=== PATIENT | male | born 1975 | race Caucasian/White ===

== ENCOUNTER 2019-02-28 10:21 | Inpatient (IN) ==
[2019-02-28] MEDS ORDERED: HYDROmorphone 2 MG/1 ML VIAL IV STA (10:42)
[2019-02-28] MEDS ORDERED: ONDANSETRON 4 MG/2 ML VIAL IV STA (10:42)
[2019-02-28] MEDS ORDERED: SODIUM CHLORIDE 0.9% 1,000 ML IV STA ×2 (10:42→12:44)
[2019-02-28] MEDS ORDERED: PIPERACILLIN/TAZOBACTAM 3,375 MG in SODIUM CHLORIDE 0.9% 100 ML IV STA (11:09)
[2019-02-28 11:30] LABS: Basophils # 0.1 10*3/uL (0.0-0.2); Basophils % 0.5 % (0.0-0.8); Eosinophils # 0.1 10*3/uL (0.0-0.87); Eosinophils % 0.4 % (0.00-10.9); Hematocrit 44.1 VOL% (42.0-52.0); Hemoglobin 15.3 GM/DL (14.0-18.0); Immature Granulocytes % 1.1 %; Immature Granulocytes Absolute 0.27 #; Lymphocytes # 1.4 10*3/uL (1.4-4.0); Lymphocytes % 5.7 % (21.2-54.2); Mean Corpuscular HGB Conc 34.7 GM/DL (32-36); Mean Corpuscular Volume 96.9 FL (87-102); Mean Platelet Volume 11.6 FL (9.6-12.0); Monocytes % 5.3 % (1.7-12.7); NRBC # 0.02 10*3/uL; Platelet Count 206 T/CUMM (130-400); Red Blood Count 4.55 MC/CUMM (3.8-5.5); Red Cell Distribution Width 12.8 % (9.3-17.3); White Blood Count 24.9 T/CUMM (4-12)
[2019-02-28 12:23] LABS: Band Neutrophils 1 % (0-10); Eosinophils 2 % (0-10); Lymphocytes 7 % (20-55); Segmented Neutrophils 84 % (50-85); Total Cells Counted 100
[2019-02-28 12:24] LABS: Platelet Estimate Normal
[2019-02-28 12:28] LABS: Alanine Aminotransferase 89 U/L (16-61); Albumin 3.3 G/DL (3.4-5.0); Alkaline Phosphatase 103 U/L (45-117); Aspartate Amino Transferase 62 U/L (0-37); Blood Urea Nitrogen 7 MG/DL (7-18); Calcium 6.5 MG/DL (8.5-10.1); Glucose 295 MG/DL (74-106); Osmolality,Calculated 263.2 MOS/KG (273-304)
[2019-02-28 13:17] LABS: Apearance,Urine CLEAR (Clear); Bilirubin,Urine Negative (Negative); Blood, Urine Small mg/dL (Negative); Glucose,Urine (UA) >=500 mg/dL (Negative); Ketones,Urine 80 mg/dL (Negative); Mucus,Urine Occasional /LPF (Occasional); Nitrite,Urine Negative (Negative); Protein,Urine >=500 MG/DL; RBC,Urine 5 /HPF (0-4); Squamous Epithelial Cell,Urine Occasional /HPF (0-10); Urine Color Yellow (Yellow); Urine Specific Gravity 1.032 (1.001-1.035); Urine Urobilinogen < 2.0 EU/DL (0.2-1.0); WBC,Urine 1 /HPF (0-6)
[2019-02-28] MEDS ORDERED: MAGNESIUM SULF RIDER 2 GM in PREMIX 1 EACH IV PRN (15:22)
[2019-02-28] MEDS ORDERED: MAGNESIUM SULF RIDER 4 GM in PREMIX 1 EACH IV PRN (15:22)
[2019-02-28] MEDS ORDERED: DEXTROSE 50% 25 GM/50 ML VIAL IV PRN (15:22)
[2019-02-28] MEDS ORDERED: GLUCAGON 1 MG VIAL IM PRN (15:22)
[2019-02-28] MEDS: HYDROmorphone 2 MG/1 ML VIAL IV PRN ×3 (15:40→22:40)
[2019-02-28] MEDS ORDERED: hydrALAZINE 20 MG/1 ML VIAL IV PRN (16:19)
[2019-02-28 16:34] LABS: Risk Ratio 10.18
[2019-02-28 16:48] LABS: VLDL CHOLESTEROL 966.6 MG/DL
[2019-02-28] MEDS: DEXTROSE 5% NACL 0.9% 1,000 ML IV SCH (17:36)
[2019-02-28] MEDS: INSULIN REGULAR DRIP 100 ML IV SCH (17:37)
[2019-02-28] MEDS ORDERED: INSULIN LISPRO 100 UNIT/ML SUBCUT SCH ×2 (18:00)
[2019-02-28] MEDS: ONDANSETRON 4 MG/2 ML VIAL IV PRN (18:35)
[2019-02-28] MEDS: PANTOPRAZOLE 40 MG VIAL IV SCH (20:34)
[2019-02-28] MEDS: PIPERACILLIN/TAZOBACTAM 3,375 MG in SODIUM CHLORIDE 0.9% 100 ML IV SCH (20:34)
[2019-02-28] MEDS: ENOXAPARIN 40 MG/0.4 ML SYRINGE SUBCUT SCH (20:34)
[2019-03-01] MEDS: DEXTROSE 5% NACL 0.9% 1,000 ML IV SCH ×3 (01:36→17:46)
[2019-03-01 04:19] LABS: Basophils # 0.1 10*3/uL (0.0-0.2); Basophils % 0.3 % (0.0-0.8); Eosinophils # 0.2 10*3/uL (0.0-0.87); Eosinophils % 0.9 % (0.00-10.9); Hematocrit 39.5 VOL% (42.0-52.0); Hemoglobin 14.3 GM/DL (14.0-18.0); Immature Granulocytes % 1.2 %; Lymphocytes # 1.5 10*3/uL (1.4-4.0); Lymphocytes % 5.9 % (21.2-54.2); Mean Corpuscular HGB Conc 36.2 GM/DL (32-36); Mean Corpuscular Volume 97.5 FL (87-102); Mean Platelet Volume 12.4 FL (9.6-12.0); Monocytes % 4.7 % (1.7-12.7); Platelet Count 273 T/CUMM (130-400); Red Blood Count 4.05 MC/CUMM (3.8-5.5); Red Cell Distribution Width 13.6 % (9.3-17.3); White Blood Count 24.9 T/CUMM (4-12)
[2019-03-01 04:38] LABS: Bilirubin,Total 0.7 MG/DL (0.2-1.0); Calcium 8.3 MG/DL (8.5-10.1); Osmolality,Calculated 271.2 MOS/KG (273-304); Total Protein 7.5 G/DL (6.4-8.3)
[2019-03-01 05:23] LABS: Risk Ratio 11.06; VLDL CHOLESTEROL 503.4 MG/DL
[2019-03-01 05:35] LABS: Platelet Estimate Normal
[2019-03-01] MEDS: PIPERACILLIN/TAZOBACTAM 3,375 MG in SODIUM CHLORIDE 0.9% 100 ML IV SCH ×3 (05:41→20:37)
[2019-03-01] MEDS: HYDROmorphone 2 MG/1 ML VIAL IV PRN ×4 (06:10→21:40)
[2019-03-01] MEDS: PANTOPRAZOLE 40 MG VIAL IV SCH ×2 (08:55→20:37)
[2019-03-01] MEDS: DILTIAZEM 50 MG/10 ML VIAL IV PRN ×2 (12:53→18:36)
[2019-03-01] MEDS: ENOXAPARIN 40 MG/0.4 ML SYRINGE SUBCUT SCH (20:37)
[2019-03-01] MEDS: NICOTINE 21 MG/24 HR PATCH TRANSDERM PRN (21:44)
[2019-03-02] MEDS: DEXTROSE 5% NACL 0.9% 1,000 ML IV SCH ×3 (01:38→19:58)
[2019-03-02] MEDS: HYDROmorphone 2 MG/1 ML VIAL IV PRN ×4 (02:23→20:31)
[2019-03-02 04:44] LABS: Basophils # 0.1 10*3/uL (0.0-0.2); Basophils % 0.4 % (0.0-0.8); Eosinophils # 0.3 10*3/uL (0.0-0.87); Eosinophils % 1.7 % (0.00-10.9); Hematocrit 36.6 VOL% (42.0-52.0); Hemoglobin 12.5 GM/DL (14.0-18.0); Immature Granulocytes % 1.2 %; Immature Granulocytes Absolute 0.23 #; Lymphocytes # 1.1 10*3/uL (1.4-4.0); Lymphocytes % 5.3 % (21.2-54.2); Mean Corpuscular HGB Conc 34.2 GM/DL (32-36); Mean Corpuscular Volume 98.9 FL (87-102); Mean Platelet Volume 11.9 FL (9.6-12.0); Monocytes % 5.2 % (1.7-12.7); Neutrophils % 86.2 % (38.7-73.9); Platelet Count 162 T/CUMM (130-400); Red Cell Distribution Width 13.8 % (9.3-17.3); White Blood Count 19.9 T/CUMM (4-12)
[2019-03-02] MEDS: INSULIN REGULAR DRIP 100 ML IV SCH ×2 (04:48→20:43)
[2019-03-02] MEDS: PIPERACILLIN/TAZOBACTAM 3,375 MG in SODIUM CHLORIDE 0.9% 100 ML IV SCH ×3 (04:49→20:30)
[2019-03-02 05:47] LABS: Albumin 2.3 G/DL (3.4-5.0); Bilirubin,Total 0.7 MG/DL (0.2-1.0); Calcium 8.4 MG/DL (8.5-10.1); Osmolality,Calculated 274.8 MOS/KG (273-304); Risk Ratio 15.15; Total Protein 6.7 G/DL (6.4-8.3); VLDL CHOLESTEROL 270.2 MG/DL
[2019-03-02] MEDS ORDERED: GEMFIBROZIL 600 MG TABLET PO SCH (07:30)
[2019-03-02] MEDS ORDERED: ACETAMINOPHEN 325 MG TABLET PO PRN (07:47)
[2019-03-02] MEDS ORDERED: ALUMINUM/MAGNES/SIMETH MAX STR 30 ML UDCUP PO PRN (07:47)
[2019-03-02] MEDS ORDERED: DEXTROSE 50% 25 GM/50 ML SYRINGE IV PRN (08:00)
[2019-03-02] MEDS: ONDANSETRON 4 MG/2 ML VIAL IV PRN (08:29)
[2019-03-02] MEDS: POTASSIUM CHLORIDE RIDER 10 MEQ in PREMIX 1 EACH IV PRN (08:31)
[2019-03-02] MEDS: BUTALBITAL/ACETAMIN/CAFFEINE 50-325-40 MG TABLET PO PRN ×3 (08:32→22:50)
[2019-03-02] MEDS: DILTIAZEM 30 MG TABLET PO SCH ×4 (08:33→20:30)
[2019-03-02] MEDS: PANTOPRAZOLE 40 MG VIAL IV SCH ×2 (08:34→20:30)
[2019-03-02] MEDS: GEMFIBROZIL 600 MG TABLET PO SCH (17:06)
[2019-03-02] MEDS: ENOXAPARIN 40 MG/0.4 ML SYRINGE SUBCUT SCH (20:30)
[2019-03-03] MEDS: HYDROmorphone 2 MG/1 ML VIAL IV PRN ×5 (00:05→21:53)
[2019-03-03] MEDS: diphenhydrAMINE CAP 25 MG CAPSULE PO PRN ×4 (00:44→20:04)
[2019-03-03 04:49] LABS: Calcium 8.3 MG/DL (8.5-10.1); Osmolality,Calculated 273.8 MOS/KG (273-304)
[2019-03-03] MEDS: PIPERACILLIN/TAZOBACTAM 3,375 MG in SODIUM CHLORIDE 0.9% 100 ML IV SCH ×3 (05:08→20:04)
[2019-03-03] MEDS: DEXTROSE 5% NACL 0.9% 1,000 ML IV SCH ×2 (05:08→16:00)
[2019-03-03] MEDS: POTASSIUM CHLORIDE RIDER 10 MEQ in PREMIX 1 EACH IV PRN ×2 (05:09→06:27)
[2019-03-03 06:47] LABS: Basophils # 0.1 10*3/uL (0.0-0.2); Basophils % 0.3 % (0.0-0.8); Eosinophils # 0.4 10*3/uL (0.0-0.87); Eosinophils % 2.7 % (0.00-10.9); Hematocrit 37.4 VOL% (42.0-52.0); Hemoglobin 12.1 GM/DL (14.0-18.0); Immature Granulocytes Absolute 0.15 #; Lymphocytes # 1.3 10*3/uL (1.4-4.0); Lymphocytes % 9.1 % (21.2-54.2); Mean Corpuscular HGB Conc 32.4 GM/DL (32-36); Mean Corpuscular Volume 100.5 FL (87-102); Mean Platelet Volume 11.6 FL (9.6-12.0); Monocytes % 6.9 % (1.7-12.7); Platelet Count 166 T/CUMM (130-400); Red Blood Count 3.72 MC/CUMM (3.8-5.5); White Blood Count 14.6 T/CUMM (4-12)
[2019-03-03] MEDS: DILTIAZEM 30 MG TABLET PO SCH ×5 (07:18→20:04)
[2019-03-03] MEDS: GEMFIBROZIL 600 MG TABLET PO SCH ×2 (07:18→17:11)
[2019-03-03 07:58] LABS: Risk Ratio 16.35
[2019-03-03] MEDS: PANTOPRAZOLE 40 MG VIAL IV SCH ×2 (09:55→20:04)
[2019-03-03] MEDS: BUTALBITAL/ACETAMIN/CAFFEINE 50-325-40 MG TABLET PO PRN (14:20)
[2019-03-03] MEDS: INSULIN REGULAR DRIP 100 ML IV SCH (18:59)
[2019-03-03] MEDS: ENOXAPARIN 40 MG/0.4 ML SYRINGE SUBCUT SCH (20:04)
[2019-03-04] MEDS: DEXTROSE 5% NACL 0.9% 1,000 ML IV SCH (00:42)
[2019-03-04 04:48] LABS: Basophils % 0.3 % (0.0-0.8); Eosinophils # 0.3 10*3/uL (0.0-0.87); Eosinophils % 2.2 % (0.00-10.9); Hematocrit 34.4 VOL% (42.0-52.0); Hemoglobin 11.5 GM/DL (14.0-18.0); Immature Granulocytes % 0.8 %; Immature Granulocytes Absolute 0.11 #; Lymphocytes # 1.1 10*3/uL (1.4-4.0); Lymphocytes % 7.9 % (21.2-54.2); Mean Corpuscular HGB Conc 33.4 GM/DL (32-36); Mean Corpuscular Volume 98.9 FL (87-102); Mean Platelet Volume 11.3 FL (9.6-12.0); Monocytes % 8.6 % (1.7-12.7); Neutrophils % 80.2 % (38.7-73.9); Platelet Count 179 T/CUMM (130-400); Red Blood Count 3.48 MC/CUMM (3.8-5.5); Red Cell Distribution Width 13.6 % (9.3-17.3); White Blood Count 13.6 T/CUMM (4-12)
[2019-03-04 05:03] LABS: Albumin 2.1 G/DL (3.4-5.0); Bilirubin,Total 0.6 MG/DL (0.2-1.0); Calcium 7.9 MG/DL (8.5-10.1); Osmolality,Calculated 274.7 MOS/KG (273-304); Total Protein 6.5 G/DL (6.4-8.3)
[2019-03-04] MEDS: PIPERACILLIN/TAZOBACTAM 3,375 MG in SODIUM CHLORIDE 0.9% 100 ML IV SCH ×3 (05:15→20:58)
[2019-03-04] MEDS: POTASSIUM CHLORIDE RIDER 10 MEQ in PREMIX 1 EACH IV PRN ×3 (05:15→08:14)
[2019-03-04] MEDS: GEMFIBROZIL 600 MG TABLET PO SCH ×2 (08:00→16:42)
[2019-03-04] MEDS: DILTIAZEM 30 MG TABLET PO SCH ×4 (08:01→20:59)
[2019-03-04] MEDS: PANTOPRAZOLE 40 MG VIAL IV SCH ×2 (08:02→20:57)
[2019-03-04] MEDS ORDERED: BISACODYL 10 MG SUPP RECTAL PRN (09:42)
[2019-03-04] MEDS ORDERED: BISACODYL 5 MG TABLET PO PRN (09:42)
[2019-03-04] MEDS ORDERED: POTASSIUM CHLORIDE 20 MEQ TABLET PO ONE (10:09)
[2019-03-04] MEDS: HYDROmorphone 2 MG/1 ML VIAL IV PRN ×4 (10:51→21:36)
[2019-03-04] MEDS: POLYETHYLENE GLYCOL POWDER 17 GM PACK PO SCH (11:45)
[2019-03-04] MEDS ORDERED: DEXTROSE 50% 25 GM/50 ML VIAL IV PRN (15:16)
[2019-03-04] MEDS: INSULIN LISPRO 100 UNIT/ML SUBCUT SCH ×2 (16:42→21:47)
[2019-03-04] MEDS: NIACIN 500 MG TABLET PO SCH (21:00)
[2019-03-04] MEDS: ENOXAPARIN 40 MG/0.4 ML SYRINGE SUBCUT SCH (21:00)
[2019-03-04] MEDS: NICOTINE 21 MG/24 HR PATCH TRANSDERM PRN (21:35)
[2019-03-04] MEDS: diphenhydrAMINE CAP 25 MG CAPSULE PO PRN (21:39)
[2019-03-05] MEDS: INSULIN LISPRO 100 UNIT/ML SUBCUT SCH ×6 (00:30→20:24)
[2019-03-05] MEDS: HYDROmorphone 2 MG/1 ML VIAL IV PRN ×5 (01:41→19:38)
[2019-03-05 04:21] LABS: Basophils # 0.1 10*3/uL (0.0-0.2); Basophils % 0.6 % (0.0-0.8); Eosinophils # 0.3 10*3/uL (0.0-0.87); Eosinophils % 2.3 % (0.00-10.9); Hematocrit 35.4 VOL% (42.0-52.0); Hemoglobin 11.6 GM/DL (14.0-18.0); Immature Granulocytes % 2.2 %; Immature Granulocytes Absolute 0.29 #; Lymphocytes # 1.3 10*3/uL (1.4-4.0); Lymphocytes % 9.4 % (21.2-54.2); Mean Corpuscular HGB Conc 32.8 GM/DL (32-36); Mean Corpuscular Volume 99.2 FL (87-102); Mean Platelet Volume 11.3 FL (9.6-12.0); Monocytes % 10.5 % (1.7-12.7); Platelet Count 198 T/CUMM (130-400); Red Blood Count 3.57 MC/CUMM (3.8-5.5); Red Cell Distribution Width 13.2 % (9.3-17.3); White Blood Count 13.5 T/CUMM (4-12)
[2019-03-05 04:41] LABS: Albumin 2.2 G/DL (3.4-5.0); Bilirubin,Total 0.7 MG/DL (0.2-1.0); Calcium 8.8 MG/DL (8.5-10.1); Total Protein 6.8 G/DL (6.4-8.3)
[2019-03-05] MEDS: POTASSIUM CHLORIDE 20 MEQ TABLET PO PRN (05:17)
[2019-03-05] MEDS: PIPERACILLIN/TAZOBACTAM 3,375 MG in SODIUM CHLORIDE 0.9% 100 ML IV SCH ×3 (05:17→20:29)
[2019-03-05] MEDS: PANTOPRAZOLE 40 MG VIAL IV SCH ×2 (08:33→20:29)
[2019-03-05] MEDS: NIACIN 500 MG TABLET PO SCH ×2 (08:34→20:28)
[2019-03-05] MEDS: GEMFIBROZIL 600 MG TABLET PO SCH ×2 (08:34→16:35)
[2019-03-05] MEDS: DILTIAZEM 30 MG TABLET PO SCH ×4 (08:34→20:24)
[2019-03-05] MEDS: POLYETHYLENE GLYCOL POWDER 17 GM PACK PO SCH (08:41)
[2019-03-05] MEDS: SODIUM CHLORIDE 0.45% 1,000 ML IV SCH (10:23)
[2019-03-05] MEDS: diphenhydrAMINE CAP 25 MG CAPSULE PO PRN (16:45)
[2019-03-05] MEDS: ENOXAPARIN 40 MG/0.4 ML SYRINGE SUBCUT SCH (20:29)
[2019-03-05] MEDS: NICOTINE 21 MG/24 HR PATCH TRANSDERM PRN (20:35)
[2019-03-05] MEDS ORDERED: HYDROmorphone 2 MG/1 ML VIAL IV ONE (21:15)
[2019-03-06] MEDS: HYDROmorphone 2 MG/1 ML VIAL IV PRN ×9 (00:04→19:09)
[2019-03-06] MEDS: INSULIN LISPRO 100 UNIT/ML SUBCUT SCH ×6 (00:10→20:46)
[2019-03-06] MEDS: SODIUM CHLORIDE 0.45% 1,000 ML IV SCH ×3 (01:24→16:32)
[2019-03-06] MEDS: diphenhydrAMINE CAP 25 MG CAPSULE PO PRN (03:13)
[2019-03-06] MEDS: PIPERACILLIN/TAZOBACTAM 3,375 MG in SODIUM CHLORIDE 0.9% 100 ML IV SCH ×3 (05:48→21:58)
[2019-03-06 06:09] LABS: Calcium 8.3 MG/DL (8.5-10.1); Osmolality,Calculated 268.4 MOS/KG (273-304)
[2019-03-06] MEDS ORDERED: ceFAZolin 2,000 MG in PREMIX 1 EACH IV ONE (08:41)
[2019-03-06] MEDS: GEMFIBROZIL 600 MG TABLET PO SCH ×2 (08:54→15:57)
[2019-03-06] MEDS: NIACIN 500 MG TABLET PO SCH ×2 (08:55→21:58)
[2019-03-06] MEDS: POLYETHYLENE GLYCOL POWDER 17 GM PACK PO SCH (08:55)
[2019-03-06] MEDS: DILTIAZEM 30 MG TABLET PO SCH ×4 (09:00→21:56)
[2019-03-06] MEDS: PANTOPRAZOLE 40 MG VIAL IV SCH ×2 (09:06→21:53)
[2019-03-06 10:23] LABS: INR 0.9; PT Patient Result 10.2 SECS; Partial Thromboplastin Time 32.9 SECS (0-40)
[2019-03-06] MEDS ORDERED: SEVOFLURANE 1 UNIT/15 MINUTE INH ONE (12:40)
[2019-03-06] MEDS ORDERED: MIDAZOLAM 2 MG/2 ML VIAL ONE (12:40)
[2019-03-06] MEDS ORDERED: PROPOFOL 200 MG/20 ML VIAL IV ONE (12:40)
[2019-03-06] MEDS ORDERED: fentaNYL 100 MCG/2 ML VIAL ONE (12:40)
[2019-03-06] MEDS ORDERED: ONDANSETRON 4 MG/2 ML VIAL ONE ×2 (12:40→12:41)
[2019-03-06] MEDS ORDERED: SUCCINYLCHOLINE 200 MG/10 ML VIAL ONE (12:41)
[2019-03-06] MEDS ORDERED: ROCURONIUM 100 MG/10 ML VIAL IV ONE (12:41)
[2019-03-06] MEDS ORDERED: HYDROmorphone 2 MG/1 ML VIAL ONE (12:41)
[2019-03-06] MEDS ORDERED: ONDANSETRON 4 MG/2 ML VIAL IV PRN (12:43)
[2019-03-06] MEDS ORDERED: LABETALOL 20 MG/4 ML SYRINGE IV ONE (12:43)
[2019-03-06] MEDS ORDERED: HYDROmorphone 2 MG/1 ML VIAL IV ONE ×2 (14:05→20:30)
[2019-03-06] MEDS: INSULIN GLARGINE 100 UNIT/ML SUBCUT SCH (14:49)
[2019-03-06] MEDS: ZALEPLON 5 MG CAPSULE PO PRN (21:56)
[2019-03-06] MEDS: ENOXAPARIN 40 MG/0.4 ML SYRINGE SUBCUT SCH (21:57)
[2019-03-07] MEDS: INSULIN LISPRO 100 UNIT/ML SUBCUT SCH ×6 (00:02→21:23)
[2019-03-07] MEDS: HYDROmorphone 2 MG/1 ML VIAL IV PRN ×5 (00:03→21:26)
[2019-03-07] MEDS: SODIUM CHLORIDE 0.45% 1,000 ML IV SCH ×3 (00:31→17:49)
[2019-03-07] MEDS: PIPERACILLIN/TAZOBACTAM 3,375 MG in SODIUM CHLORIDE 0.9% 100 ML IV SCH ×3 (05:12→21:35)
[2019-03-07 06:08] LABS: Basophils # 0.1 10*3/uL (0.0-0.2); Basophils % 0.7 % (0.0-0.8); Eosinophils # 0.3 10*3/uL (0.0-0.87); Eosinophils % 2.5 % (0.00-10.9); Hematocrit 34.3 VOL% (42.0-52.0); Immature Granulocytes % 4.5 %; Immature Granulocytes Absolute 0.57 #; Lymphocytes # 1.5 10*3/uL (1.4-4.0); Lymphocytes % 11.9 % (21.2-54.2); Mean Corpuscular HGB Conc 32.1 GM/DL (32-36); Mean Corpuscular Volume 99.7 FL (87-102); Mean Platelet Volume 10.5 FL (9.6-12.0); Monocytes % 8.6 % (1.7-12.7); Neutrophils % 71.8 % (38.7-73.9); Platelet Count 207 T/CUMM (130-400); Red Blood Count 3.44 MC/CUMM (3.8-5.5); Red Cell Distribution Width 12.6 % (9.3-17.3); White Blood Count 12.6 T/CUMM (4-12)
[2019-03-07 06:38] LABS: Calcium 8.1 MG/DL (8.5-10.1)
[2019-03-07 06:46] LABS: Band Neutrophils 2 % (0-10); Eosinophils 2 % (0-10); Lymphocytes 5 % (20-55); Myelocytes 2 %; Segmented Neutrophils 80 % (50-85); Total Cells Counted 100
[2019-03-07 06:47] LABS: Anisocytosis Slight; Microcytosis Slight
[2019-03-07 06:48] LABS: Platelet Estimate Normal; Spherocytes Slight
[2019-03-07 07:31] LABS: Alanine Aminotransferase 17 U/L (16-61); Albumin 2.1 G/DL (3.4-5.0); Alkaline Phosphatase 102 U/L (45-117); Aspartate Amino Transferase 11 U/L (0-37); Bilirubin,Indirect 0.3 MG/DL (0.0-1.0); Bilirubin,Total < 0.39 MG/DL (0.2-1.0); Total Protein 6.6 G/DL (6.4-8.3)
[2019-03-07] MEDS: DILTIAZEM 30 MG TABLET PO SCH ×4 (09:06→21:32)
[2019-03-07] MEDS: NIACIN 500 MG TABLET PO SCH ×2 (09:07→21:40)
[2019-03-07] MEDS: GEMFIBROZIL 600 MG TABLET PO SCH ×2 (09:07→17:48)
[2019-03-07] MEDS: PANTOPRAZOLE 40 MG VIAL IV SCH ×2 (09:07→21:28)
[2019-03-07] MEDS: POLYETHYLENE GLYCOL POWDER 17 GM PACK PO SCH (09:08)
[2019-03-07] MEDS: INSULIN GLARGINE 100 UNIT/ML SUBCUT SCH (09:08)
[2019-03-07] MEDS: SODIUM HYPOCHLORITE 0.25% IRRIG 473 ML BOTTLE TOP SCH (09:09)
[2019-03-07] MEDS: SULFAMETHOX/TRIMETHOPRIM 800-160 MG TABLET PO SCH ×2 (10:30→21:32)
[2019-03-07] MEDS: metFORMIN 500 MG TABLET PO SCH (17:48)
[2019-03-07] MEDS: ZALEPLON 5 MG CAPSULE PO PRN (21:32)
[2019-03-07] MEDS: ENOXAPARIN 40 MG/0.4 ML SYRINGE SUBCUT SCH (21:33)
[2019-03-07] MEDS: diphenhydrAMINE CAP 25 MG CAPSULE PO PRN (23:36)
[2019-03-08] MEDS: HYDROmorphone 2 MG/1 ML VIAL IV PRN ×3 (00:46→12:11)
[2019-03-08] MEDS: INSULIN LISPRO 100 UNIT/ML SUBCUT SCH ×3 (00:52→09:18)
[2019-03-08] MEDS: SODIUM CHLORIDE 0.45% 1,000 ML IV SCH (01:42)
[2019-03-08 05:48] LABS: Calcium 8.4 MG/DL (8.5-10.1); Osmolality,Calculated 277.7 MOS/KG (273-304)
[2019-03-08] MEDS: GEMFIBROZIL 600 MG TABLET PO SCH (09:18)
[2019-03-08] MEDS: metFORMIN 500 MG TABLET PO SCH (09:18)
[2019-03-08] MEDS: SULFAMETHOX/TRIMETHOPRIM 800-160 MG TABLET PO SCH (09:19)
[2019-03-08] MEDS: SODIUM HYPOCHLORITE 0.25% IRRIG 473 ML BOTTLE TOP SCH (09:19)
[2019-03-08] MEDS: DILTIAZEM 30 MG TABLET PO SCH ×2 (09:19→12:10)
[2019-03-08] MEDS: POLYETHYLENE GLYCOL POWDER 17 GM PACK PO SCH (09:19)
[2019-03-08] MEDS: INSULIN GLARGINE 100 UNIT/ML SUBCUT SCH (09:19)
[2019-03-08] MEDS: PANTOPRAZOLE 40 MG VIAL IV SCH (09:20)
[2019-03-08] MEDS: NIACIN 500 MG TABLET PO SCH (09:20)
[2019-03-08] MEDS: POTASSIUM CHLORIDE 20 MEQ TABLET PO PRN (09:20)
[2019-03-08 13:08] VITALS: BP 126/84
== END 2019-03-08 13:50 | disposition home or self-care (01) | DRG 439 ==
LOC: N.ED 10:21 → SUATTDRO 16:03 → N.EDINP 16:03 → N.3E 16:09 → N.CC 16:45 → N.2E 03-07 01:20
PROVIDERS: ADMIT Internal Medicine; ATTEND Internal Medicine